=== PATIENT | male | born 1950 | race Caucasian/White ===

== ENCOUNTER → 2020-03-07 | Outpatient (CLI) | payer MEDICARE | END | disposition home or self-care (01) | LOC: LAB EV 09:27 → LAB SHORT 09:27 | DX: R33.9 Retention of urine, unspecified (principal) | CPT/HCPCS: 87077; 87086; 87186 ==

== ENCOUNTER 2023-11-10 09:38 | Day surgery (SDC) | payer MEDICARE ==
[~2023-11-10] VITALS: Ht 182.9 cm; Wt 90.6 kg
[~2023-11-10 09:38] MED LIST: Aspir 8181 MG PO; Balanced Salt Epinephrine Irrigation Solution 500 mL IR SCH; HYDACE10B PO; Lactated Ringer's 0 ML IV ONE; Lidocaine HCl/Pf 1% 5 ML VIAL XX SCH; Lovastatin20 MG PO; METF500C PO; METO25 PO; Midazolam HCl 1MG / ML 2ML Vial ONE; Moxifloxacin HCL 0.5 MG/0.1 ML 0.4MLSYR LEFTEYE SCH; NS 500 ML IV ONE; PHENYLEPHRINE\\TROPICAMIDE\\TETRACAINE OPHTHALMIC DILATING SOLN LEFTEYE PRN; Povidone-Iodine 450 DROP/30 ML Solution LEFTEYE SCH; Povidone-Iodine 450 DROP/30 ML Solution ONE; TAMS.4ER PO; TRAM50 PO; Triamcinolone Inj Susp 40 MG / ML 1ML Vial INJ SCH; Triamcinolone Inj Susp 40 MG / ML 1ML Vial ONE
[2023-11-10] MEDS ORDERED: GABA300 PO (09:58)
[2023-11-10] MEDS ORDERED: FISH OIL 1,0001 EA10 PO (09:59)
--- NOTE | 2023-11-10 10:07 | NUR ---
11/10/23 1007 Milena Choudhury AT 1000 PLEDGET AT 1001
[2023-11-10] MEDS ORDERED: NS 500 ML IV ONE (10:09)
[2023-11-10] MEDS ORDERED: Tetracaine HCl 0.5% Opth Soln 15 ml LEFTEYE ONE (10:43)
[2023-11-10] MEDS ORDERED: FentaNYL Citrate 50 MCG/ML 2 ML Injection ONE (10:44)
[2023-11-10 11:08] VITALS: BP 113/67
== END 2023-11-10 11:24 | disposition home or self-care (01) ==
LOC: ORSCSDS 09:38
PROVIDERS: Ophthalmology
PROC: 08RK3JZ Replacement of Left Lens with Synthetic Substitute, Percutaneous Approach (ICD-10-PCS; principal; 2023-11-10 11:00)
DX: E11.36 Type 2 diabetes mellitus with diabetic cataract (principal); H25.13 Age-related nuclear cataract, bilateral; I25.10 Atherosclerotic heart disease of native coronary artery without angina pectoris; I10 Essential (primary) hypertension; Z87.891 Personal history of nicotine dependence; Z79.82 Long term (current) use of aspirin; Z79.84 Long term (current) use of oral hypoglycemic drugs; Z79.899 Other long term (current) drug therapy
CPT/HCPCS: 82947; J2250; J3010; J3301; J7040; J7120; V2632

== ENCOUNTER → 2024-03-09 | Outpatient (CLI) | payer MEDICARE ==
[~2024-03-09] MED LIST changes: -Balanced Salt Epinephrine Irrigation Solution 500 mL IR SCH; +FISH OIL 1,0001 EA10 PO; +GABA300 PO; -Lactated Ringer's 0 ML IV ONE; -Lidocaine HCl/Pf 1% 5 ML VIAL XX SCH; -Midazolam HCl 1MG / ML 2ML Vial ONE; -Moxifloxacin HCL 0.5 MG/0.1 ML 0.4MLSYR LEFTEYE SCH; -NS 500 ML IV ONE; -PHENYLEPHRINE\\TROPICAMIDE\\TETRACAINE OPHTHALMIC DILATING SOLN LEFTEYE PRN; -Povidone-Iodine 450 DROP/30 ML Solution LEFTEYE SCH; -Povidone-Iodine 450 DROP/30 ML Solution ONE; -Triamcinolone Inj Susp 40 MG / ML 1ML Vial INJ SCH; -Triamcinolone Inj Susp 40 MG / ML 1ML Vial ONE
[2024-03-14 14:38] LABS: O-DESMETHYLTRAMADOL,URN, QUANT 2165 ng/mL; TRAMADOL, URN, QUANT 7679 ng/mL
== END ==
LOC: LAB SHORT 12:05 → LAB 12:05
PROVIDERS: Internal Medicine
DX: Z51.81 Encounter for therapeutic drug level monitoring (principal); Z79.899 Other long term (current) drug therapy
CPT/HCPCS: G0480